=== PATIENT | female | born 1980 | race Caucasian/White ===

== ENCOUNTER 2018-08-03 10:28 | Day surgery (SDC) | payer OTHER ==
[2018-08-02 08:14] VITALS: BP 136/83
[~2018-08-03] VITALS: Ht 160 cm; Wt 79.5 kg
[~2018-08-03 10:28] MED LIST: PREN1TAB10 PO
[2018-08-03 14:56] VITALS: BP 136/83
[2018-08-03] MEDS ORDERED: LACTATED RINGERS 1,000 ML IV SCH (15:01)
[2018-08-03] MEDS ORDERED: FENTANYL PF 100 MCG/2ML ONE ×2 (15:56→17:35)
[2018-08-03] MEDS ORDERED: MIDAZOLAM 1 MG/ML, 2ML ONE (16:03)
[2018-08-03] MEDS ORDERED: DEXAMETHASONE 4 MG/ML, 1ML ONE (16:03)
[2018-08-03] MEDS ORDERED: PROPOFOL 10 MG/ML, 20ML ONE (16:03)
[2018-08-03] MEDS ORDERED: ONDANSETRON 2MG/ML, 2ML ONE (16:03)
[2018-08-03] MEDS ORDERED: CEFAZOLIN 1,000 MG ONE (16:03)
[2018-08-03] MEDS ORDERED: OXYTOCIN 10 UNITS/ML, 1ML ONE (16:44)
[2018-08-03] MEDS ORDERED: MISOPROSTOL 200 MCG TABLET ONE (16:44)
[2018-08-03] MEDS ORDERED: SILVER NITRATE STICK TP ONE (16:45)
[2018-08-03] MEDS ORDERED: METHYLERGONOVINE 0.2 MG/ML IM ONE (16:45)
[2018-08-03] MEDS ORDERED: FENTANYL PF 100 MCG/2ML IV PRN (17:30)
[2018-08-03] MEDS ORDERED: MEPERIDINE/PF 25MG/0.5ML IVPush PRN (17:30)
[2018-08-03] MEDS ORDERED: PROMETHAZINE 25 MG/ML, 1ML IV PRN (17:30)
[2018-08-03] MEDS ORDERED: ACETAMINOPHEN 325 MG TABLET PO PRN (17:30)
[2018-08-03] MEDS ORDERED: hydrALAzine 20 MG/ML, 1ML IV PRN (17:30)
[2018-08-03] MEDS ORDERED: PROCHLORPERAZINE 5 MG/ML, 2ML IV PRN (17:30)
[2018-08-03] MEDS ORDERED: OXYcodone 5 MG/5 ML ORAL.SOL UDC PO PRN (17:30)
[2018-08-03] MEDS ORDERED: LABETALOL 5MG/ML, 20ML IV PRN (17:30)
[2018-08-03] MEDS ORDERED: DIPHENHYDRAMINE 50 MG/ML, 1ML IVPush PRN (17:30)
[2018-08-03] MEDS ORDERED: HYDROmorphone 2 MG/ML, 1ML IVPush PRN (17:30)
[2018-08-03] MEDS ORDERED: HALOPERIDOL 5 MG/ML IV PRN (17:30)
[2018-08-03] MEDS ORDERED: METOPROLOL 1 MG/ML, 5ML IV PRN (17:30)
[2018-08-03] MEDS ORDERED: OXYcodone 5 MG/5 ML ORAL.SOL UDC ONE (17:34)
[2018-08-03] MEDS ORDERED: ACETAMINOPHEN 650 MG/20.3 ML UDC ONE (17:35)
== END 2018-08-03 20:15 | disposition home or self-care (01) ==
LOC: OR 10:28 → 4NOR 18:13 → OR 20:15
PROVIDERS: ATTEND Obstetrics & Gynecology Maternal & Fetal Medicine
DX: O02.1 Missed abortion (principal); Z3A.01 Less than 8 weeks gestation of pregnancy
CPT/HCPCS: 36415; 59820; 86850; 86900; 88305; J0690; J1100; J2250; J2405; J2704; G0378; J3010; J2210; J2590

== ENCOUNTER 2019-11-17 16:49 | Inpatient (IN) | payer OTHER ==
[~2019-11-17] VITALS: Ht 160 cm; Wt 89.0 kg
[2019-11-17] MEDS: LACTATED RINGERS 1,000 ML IV SCH (16:35)
[2019-11-17] MEDS ORDERED: OXYTOCIN 30U/ 0.9% NaCL 500ML 500 ML IV PRN (16:53)
[2019-11-17] MEDS ORDERED: D5%-LACTATED RINGERS 1,000 ML IV SCH (16:53)
[2019-11-17] MEDS ORDERED: OXYTOCIN 30U/ 0.9% NaCL 500ML 500 ML IV ONE (16:53)
[2019-11-17] MEDS ORDERED: PENICILLIN GK 5,000,000 UNITS in DEXTROSE 5% 100 ML IVPB ONE (17:00)
[2019-11-17] MEDS ORDERED: TERBUTALINE 1 MG/ML, 1ML IVPush PRN (17:00)
[2019-11-17] MEDS ORDERED: ONDANSETRON 2MG/ML, 2ML IVPush PRN (17:00)
[2019-11-17] MEDS ORDERED: METOCLOPRAMIDE 5 MG/ML, 2ML IVPush PRN (17:00)
[2019-11-17] MEDS ORDERED: FENTANYL PF 100 MCG/2ML IVPush PRN (17:00)
[2019-11-17] MEDS ORDERED: TERBUTALINE 1 MG/ML, 1ML SQ PRN (17:00)
[2019-11-17] MEDS ORDERED: FENTANYL PF 100 MCG/2ML IV PRN (17:00)
[2019-11-17] MEDS ORDERED: SODIUM CITRATE/CITRIC ACID 30 ML UDC PO PRN (17:00)
[2019-11-17] MEDS ORDERED: MISOPROSTOL 25 MCG TABLET ONE ×2 (17:09→20:52)
[2019-11-17] MEDS ORDERED: LIDOCAINE 1%, 20ML ONE (17:09)
[2019-11-17] MEDS ORDERED: NEWBORN KIT ONE (17:09)
[2019-11-17] MEDS ORDERED: MISOPROSTOL 200 MCG TABLET ONE (17:10)
[2019-11-17] MEDS ORDERED: OXYTOCIN 30U/ 0.9% NaCL 500ML 500 ML ONE (17:10)
[2019-11-17 17:13] LABS: BASOPHILS # (AUTO) 0.01 x10^3/uL (0-0.1); BASOPHILS % (AUTO) 0 % (0-1); EOSINOPHILS # (AUTO) 0.02 x10^3/uL (0-0.4); EOSINOPHILS % (AUTO) 0 % (1-7); LYMPHOCYTES # (AUTO) 1.61 x10^3/uL (1-3.4); LYMPHOCYTES % (AUTO) 22 % (22-44); MD NO; MEAN CORPUSCULAR HEMOGLOBIN 24.1 pg (27.0-34.8); MEAN CORPUSCULAR HGB CONC 31.7 g/dL (32.4-35.8); MEAN CORPUSCULAR VOLUME 75.9 fL (80-100); MEAN PLATELET VOLUME 8.5 fL (7.4-10.4); MONOCYTES # (AUTO) 0.42 x10^3/uL (0.2-0.8); MONOCYTES % (AUTO) 6 % (2-9); NEUTROPHILS # (AUTO) 5.28 x10^3/uL (1.8-6.8); NEUTROPHILS % (AUTO) 72 % (42-75); PLATELET COUNT 325 x10^3/uL (130-400); RED BLOOD COUNT 4.52 x10^6/uL (3.82-5.3); RED CELL DISTRIBUTION WIDTH 15.9 % (9.6-15.2)
[2019-11-17 17:25] LABS: ALANINE AMINOTRANSFERASE 137 U/L (12-78); ALBUMIN 2.4 g/dL (3.4-5.0); ANION GAP 11 mmol/L (5-15); CHLORIDE 105 mmol/L (98-107); CREATININE 0.77 mg/dL (0.55-1.02)
[2019-11-17] MEDS: MISOPROSTOL 25 MCG TABLET VG PRN ×2 (17:25→21:00)
[2019-11-17 17:28] LABS: ALKALINE PHOSPHATASE 265 U/L (45-117); BILIRUBIN,TOTAL 0.2 mg/dL (0.2-1.0); TOTAL PROTEIN 7.1 g/dL (6.4-8.2)
[2019-11-17 17:30] VITALS: BP 130/81
[2019-11-17 20:21] VITALS: BP 134/85
[2019-11-17] MEDS: PENICILLIN GK 2,500,000 UNITS in DEXTROSE 5% 100 ML IVPB SCH (21:06)
[2019-11-18] MEDS: LACTATED RINGERS 1,000 ML IV SCH (00:53)
[2019-11-18] MEDS: PENICILLIN GK 2,500,000 UNITS in DEXTROSE 5% 100 ML IVPB SCH ×2 (01:10→06:20)
[2019-11-18] MEDS ORDERED: FENTANYL/BUPIV./NS/PF 250 ML EPIDCONT ONE (04:06)
[2019-11-18] MEDS ORDERED: BUPIVACAINE 0.25% ONE (04:33)
[2019-11-18] MEDS ORDERED: LACTATED RINGERS 1,000 ML IV SCH (04:57)
[2019-11-18] MEDS ORDERED: FENTANYL/BUPIV./NS/PF 250 ML EPIDCONT SCH (04:57)
[2019-11-18] MEDS ORDERED: LACTATED RINGERS 1,000 ML IVBOLUS PRN (05:00)
[2019-11-18] MEDS ORDERED: EPHEDRINE 50 MG/ML, 1ML IVPush PRN (05:00)
[2019-11-18] MEDS ORDERED: TERBUTALINE 1 MG/ML, 1ML ONE (05:15)
[2019-11-18] MEDS ORDERED: OXYTOCIN 30U/ 0.9% NaCL 500ML 500 ML IV SCH (08:36)
[2019-11-18] MEDS ORDERED: SIMETHICONE 80 MG CHEW TAB PO PRN (09:00)
[2019-11-18] MEDS ORDERED: OXYcodone/APAP 5/325MG TABLET PO PRN ×2 (09:00)
[2019-11-18] MEDS ORDERED: IBUPROFEN 600 MG TABLET PO PRN (09:00)
[2019-11-18] MEDS: PRENATAL VIT/IRON/FA 1 EACH TABLET PO SCH (09:00)
[2019-11-18] MEDS ORDERED: ONDANSETRON 2MG/ML, 2ML IV PRN (09:00)
[2019-11-18] MEDS ORDERED: OXYTOCIN 30U/ 0.9% NaCL 500ML 500 ML ONE (09:00)
[2019-11-18] MEDS ORDERED: ACETAMINOPHEN 325 MG TABLET PO PRN ×2 (09:00)
[2019-11-18] MEDS ORDERED: DOCUSATE 100 MG CAPSULE PO PRN (09:00)
[2019-11-18] MEDS ORDERED: MISOPROSTOL 200 MCG TABLET PR PRN (09:00)
[2019-11-18 10:25] VITALS: BP 114/73
[2019-11-18 12:00] VITALS: BP 139/82
[2019-11-18 16:44] LABS: BASOPHILS # (AUTO) 0.03 x10^3/uL (0-0.1); BASOPHILS % (AUTO) 0 % (0-1); EOSINOPHILS # (AUTO) 0.02 x10^3/uL (0-0.4); EOSINOPHILS % (AUTO) 0 % (1-7); LYMPHOCYTES # (AUTO) 1.58 x10^3/uL (1-3.4); LYMPHOCYTES % (AUTO) 15 % (22-44); MD NO; MEAN CORPUSCULAR HEMOGLOBIN 24.1 pg (27.0-34.8); MEAN CORPUSCULAR HGB CONC 31.5 g/dL (32.4-35.8); MEAN CORPUSCULAR VOLUME 76.4 fL (80-100); MEAN PLATELET VOLUME 8.4 fL (7.4-10.4); MONOCYTES # (AUTO) 0.58 x10^3/uL (0.2-0.8); MONOCYTES % (AUTO) 6 % (2-9); NEUTROPHILS # (AUTO) 8.26 x10^3/uL (1.8-6.8); NEUTROPHILS % (AUTO) 79 % (42-75); PLATELET COUNT 296 x10^3/uL (130-400); RED BLOOD COUNT 4.37 x10^6/uL (3.82-5.3); RED CELL DISTRIBUTION WIDTH 16.1 % (9.6-15.2)
[2019-11-18 17:30] VITALS: BP 120/80
[2019-11-18 20:00] VITALS: BP 125/86
[2019-11-19] VITALS: BP 123/82
[2019-11-19 03:47] VITALS: BP 132/79
[2019-11-19] MEDS ORDERED: LIDOCAINE/PF 1.5%-EPI 1:200K, 30ML ONE (04:40)
[2019-11-19 07:05] VITALS: BP 118/71
[2019-11-19] MEDS: PRENATAL VIT/IRON/FA 1 EACH TABLET PO SCH (09:00)
[2019-11-19 19:30] VITALS: BP 123/79
[2019-11-20] MEDS: PRENATAL VIT/IRON/FA 1 EACH TABLET PO SCH (09:00)
[2019-11-20 09:15] VITALS: BP 125/81
[2019-11-20] MEDS ORDERED: IBUP-1222 PO (10:20)
== END 2019-11-20 12:13 | disposition home or self-care (01) | DRG 805 ==
LOC: EDIP 16:49 → LDIP 16:52 → 2NW 11-18 10:06
PROVIDERS: ADMIT Obstetrics & Gynecology Maternal & Fetal Medicine; ATTEND Obstetrics & Gynecology Maternal & Fetal Medicine
PROC: 10E0XZZ Delivery of Products of Conception, External Approach (ICD-10-PCS; principal; 2019-11-18)
PROC: 0KQM0ZZ Repair Perineum Muscle, Open Approach (ICD-10-PCS; 2019-11-18)
PROC: 10907ZC Drainage of Amniotic Fluid, Therapeutic from Products of Conception, Via Natural or Artificial Opening (ICD-10-PCS; 2019-11-18)
PROC: 3E033VJ Introduction of Other Hormone into Peripheral Vein, Percutaneous Approach (ICD-10-PCS; 2019-11-18)
PROC: 3E0R3BZ Introduction of Anesthetic Agent into Spinal Canal, Percutaneous Approach (ICD-10-PCS; 2019-11-18)
PROC: 00HU33Z Insertion of Infusion Device into Spinal Canal, Percutaneous Approach (ICD-10-PCS; 2019-11-18)
DX: O26.62 Liver and biliary tract disorders in childbirth (principal); K83.1 Obstruction of bile duct; Z37.0 Single live birth; O99.02 Anemia complicating childbirth; O70.1 Second degree perineal laceration during delivery; Z20.828 Contact with and (suspected) exposure to other viral communicable diseases; Z3A.38 38 weeks gestation of pregnancy; D50.9 Iron deficiency anemia, unspecified
CPT/HCPCS: 36415; 80053; 82239; 85025; 86592; 86850; 86900; 87635; G0378; J2540; J3490; J2590; J3010; J7120; J7121